=== PATIENT | male | born 1990 | race Two or more races ===

== ENCOUNTER 2024-05-04 08:13 | Emergency (ER) | payer MEDICARE, OTHER, SELFPAY ==
[2024-05-04 08:20] VITALS: BP 138/101
--- NOTE | 2024-05-04 08:48 | ED.GENMED ---
History of Present Illness
General
Chief Complaint: Sleep Disturbances
Time Seen by Provider: 05/04/24 08:48
History of Present Illness
History of Present Illness:
TIME OF INITIAL ENCOUNTER: 8:50 AM
HPI:
The patient is currently a relatively poor historian and does not offer much in the way of history. There is concern for insomnia. I spoke to the father at bedside as well. The patient had a cold over the past week. He has been taking cough
medication but father confirms that not have anything in it that would lead to insomnia. He has not been on any caffeine. Denies drug/alcohol use. He no longer takes divalproex. There was also concerns that he has been having an abnormal
sensation in his head and abnormal sensation that migrate throughout various parts of his body.
EXAM:
GENERAL: Well appearing in no distress
HEENT: Moist oral mucosa
CARDIOVASCULAR: No murmurs, normal heart rate, regular rhythm, No chest wall tenderness
PULMONARY: No respiratory distress, breath sounds are clear and equal
ABDOMEN: Soft with no peritoneal signs, no tenderness
NEUROLOGIC: Excellent strength all extremities, no coordination deficits
PSYCHIATRIC: The patient has a flat affect, no spontaneous speech but does give 1 or 2 word answers when questioned
EXTREMITIES: Nontender, no edema, moves all extremities equally
SKIN: No rash, no lesions
NUMBER AND COMPLEXITY OF PROBLEMS ADDRESSED AT THE ENCOUNTER
� Chronic conditions affecting care: Schizophrenia, OCD
� Acute Exacerbation and/or Progression of Chronic Illness: This is an acute problem
� Differential Diagnosis includes: Insomnia, exacerbation of schizophrenia, electrolyte abnormality, thyroid disease, B12/folate abnormality
AMOUNT AND/OR COMPLEXITY OF DATA TO BE REVIEWED AND ANALYZED
� I performed an independent evaluation of and my interpretation is:
EKG:
CT:
X-rays:
Laboratory Studies: CBC and chemistries unremarkable, TSH unremarkable, B12 and folate unremarkable
Other:
� Review of other/old records: The patient had a head CT 08/16/2021 which was unremarkable; basic labs in 06/2022 are unremarkable; all UDS is in the past been negative
� Clinical information was obtained by an independent historian: I spoke to the father at bedside
� Prescriptions/Medications Considered but not given: Father suggested trying a muscle relaxer however the patient denies any pain
� Further testing considered but not performed:
RISK OF COMPLICATIONS AND/OR MORBIDITY OR MORTALITY OF PATIENT MANAGEMENT
� Social determinants of health affecting care: Lives at home
� Discussion with other providers:
� Escalation of care including admission/observation vs risk of discharge considered: I reviewed his medication list which includes fluvoxamine, lorazepam 0.5 mg twice daily, aripiprazole 7.5 mg nightly,
ANY OTHER UPDATES:
11:05 AM: I reassessed the patient. Medically speaking, no abnormality noted. He is still having trouble explaining what he was feeling earlier, indicating that there was a sensation that something 'is moving around'. Strongly suspect more of a
psychiatric etiology�recommend that he follows up with psych first.
Past History
Past History
ED Past Medical History: Seizures and Other (Febrile seizure as a child)
ED Past Surgical History: None
Social History
Tobacco: Non-smoker
Alcohol: None
Drug: None
Personal: Single
Living: with family
Family History
Family History: Negative Diabetes, Hypertension, Early CAD, Asthma or Cancer
Phy Exam
Physical Exam
Physical Exam:
See HPI
Course
Orders/Labs/Results
Orders:
Orders
05/04/24 09:09
B12 [Vitamin B12] Urgent
Basic Metabolic Panel Urgent
Complete Blood Count/With Diff Urgent
Folate Urgent
TSH Reflex To Free T4 Urgent
Abnormal Lab Results
05/04/24
09:09
Carbon Dioxide 31 H mmol/L
(22-30)
Glucose 110 H mg/dl
(70-99)
Folate > 20.0 H ng/ml
(2.76-20)
05/04/24 09:09
05/04/24 09:09
Vital Signs
Initial and Last Documented VS:
Initial Vital Signs
Temp Pulse Resp BP Pulse Ox
98.8 F 98 16 138/101 98
05/04/24 08:20 05/04/24 08:20 05/04/24 08:20 05/04/24 08:20 05/04/24 08:20
Last Documented Vital Signs
Temp Pulse Resp BP Pulse Ox
98.8 F 82 16 127/83 99
05/04/24 08:20 05/04/24 10:48 05/04/24 10:48 05/04/24 10:48 05/04/24 10:48
*Critical Care Note
Total Time (30-74mins, 75-104mins- exclusive of procedures): Not Applicable
ED Attending Note
-
Portions of this chart may have been created with voice recognition software.� Occasional wrong word or��sound alike� substitutions may have occurred due to the inherent limitations of voice recognition software.
Discharge Plan
Departure
Patient Disposition: Home (Routine Discharge)
Date of Disposition: 05/04/24
Time of Disposition: 11:16
Patient with high blood pressure during this ER visit?: Yes
Discharge Problem:
Insomnia
Prescriptions:
No Action
divalproex 500 MG tablet extended release 24 hr
500 mg PO HS
olanzapine 5 MG tablet
5 mg PO HS
sertraline 50 MG tablet
50 mg PO DAILY
docusate sodium [Colace] 100 mg capsule
100 mg PO BID Qty: 20 0RF
Referrals:
Fareed Marie, DO [Family Provider] -
Activity Restrictions/Additional Instructions:
Consider taking [id number] Unisom (doxylamine) to help with sleep. Basic blood work is unremarkable. Follow up with your psychiatrist.
Interventions
Interventions:
*Risk Screen - Suicide Last Done: 05/04/24 08:20
*General Assessment Last Done: 05/04/24 09:11
*Neglect/Abuse Screening Last Done: 05/04/24 08:20
ED- Fall Risk Assessment Last Done: 05/04/24 09:11
*ED COVID-19 Vaccine History Last Done: 05/04/24 09:11
*Nursing Disposition Last Done: 05/04/24 11:25
ED- Neurological Assessment Last Done: 05/04/24 09:11
ED-Psychological Assessment Last Done: 05/04/24 09:11
ED-Suicide Risk Assessment Last Done: 05/04/24 09:11
Discharge Date and Time
Discharge Date/Time: 05/04/24 11:25
Print Language: [place]
--- NOTE | 2024-05-04 08:52 | EDRN ---
Dr. Coppola in room w/ pt at this time.
[2024-05-04 09:22] LABS: % Basophils 0.5 % (0-2); % Eosinophils 1.8 % (0-6); % Immature Granulocytes 0.3 % (0-0.5); % Lymphocytes 23.3 % (20.5-51.1); % Monocytes 6.3 % (1.7-9.3); % Neutrophils 67.8 % (42.2-75.2); Absolute Eosinophils 0.1 10^3/uL (0-0.7); Absolute Lymphocytes 1.8 10^3/uL (1.2-3.4); Absolute Monocytes 0.5 10^3/uL (0.1-0.6); Absolute Neutrophils 5.3 10^3/uL (1.4-6.5); Hemoglobin 15.5 g/dL (13.0-18.0); Mean Corp Hgb Conc. 34.4 g/dL (33.0-37.0); Mean Corpuscular Hgb 30.4 pg (27.0-31.0); Mean Corpuscular Volume 88.2 fL (80.0-94.0); Mean Platelet Volume 9.3 fL (7.4-10.4); Nucleated Red Blood Cells % 0 % (-); Platelet Count 283 10^3/uL (130-400); Red Cell Dist. Width 12.1 % (11.5-14.5); White Blood Cell Count 7.8 10^3/uL (4.8-10.8)
[2024-05-04 09:33] LABS: Blood Urea Nitrogen 12 mg/dl (9-20); Calcium 9.6 mg/dl (8.4-10.2); Carbon Dioxide 31 mmol/L (22-30); Chloride 102 mmol/L (98-107); Glucose 110 mg/dl (70-99); Potassium 4.6 mmol/L (3.5-5.1); Sodium 144 mmol/L (135-145); eGFR > 60.00
[2024-05-04 09:43] VITALS: BP 122/82; BMI 21.0
[2024-05-04 10:48] VITALS: BP 127/83
[2024-05-04 10:54] LABS: TSH Reflex To Free T4 1.85 uIU/ml (0.47-4.68)
--- NOTE | 2024-05-04 11:04 | EDRN ---
Dr. Coppola in w/ pt and father at this time.
[2024-05-04 14:48] LABS: Folate > 20.0 ng/ml (2.76-20); Vitamin B12 790 pg/ml (239-931)
== END 2024-05-04 11:25 | disposition home or self-care (01) ==
LOC: EMR 08:13
PROVIDERS: EMERGENCY PHYSICIAN Emergency Medicine; FAMILY PHYSICIAN Family Medicine
DX: G47.00 Insomnia, unspecified (principal); R03.0 Elevated blood-pressure reading, without diagnosis of hypertension
CPT/HCPCS: 99283; 80048; 82607; 82746; 84443; 85025

== ENCOUNTER 2024-08-10 18:12 | Emergency (ER) | payer MEDICARE, OTHER, SELFPAY ==
--- NOTE | 2024-08-10 18:15 | ED.GENMED ---
ED Provider Triage
<Elvis Regan PA-C - Last Filed: 08/10/24 18:18>
-
Patient seen by provider in Triage?: Seen in Triage
Attestation: A medical screening examination has been initiated by a qualified medical provider. Based on the assessment performed at this time, it has been determined that an emergent medical condition may exist and the patient has been informed
that further medical evaluation and possible additional diagnostic testing may be needed.
HPI: Patient reports having difficulty with his thoughts over the last hour. History was otherwise quite difficult to obtain. Patient with history of seizure disorder but no reported seizures today, family reports not had seizure in many years at
least 10 years since last. No medication changes recently. No fevers or infectious symptoms.
GENERAL: Alert , in no apparent distress
EYE: No visual abnormalities.
NECK: Trachea midline
ENT: No visible abnormalities.
LUNGS: No acute respiratory distress
NEUROLOGICAL: Alert and oriented
SKIN: Skin intact. No visible changes.
MUSCULOSKELETAL: Moving extremities normally
PSYCH: Normal and appropriate interaction.
This is a medical evaluation conducted in person to initiate diagnostic evaluation and provide initial therapeutics. Please see further documentation by the treating clinician.
History of Present Illness
<Elvis Regan PA-C - Last Filed: 08/10/24 18:18>
General
Chief Complaint: Change in Mental Status
Time Seen by Provider: 08/10/24 23:24
<Henna Ely DO - Last Filed: 08/11/24 02:05>
History of Present Illness
History of Present Illness:
33-year-old male with history of OCD and anxiety presenting to the emergency department for generally feeling unwell. Patient reports today he woke up and did not feel well, notes abnormal sensations running throughout his body. Patient is a very
poor historian regarding his symptoms, is unable to elaborate on what he is feeling. Denies suicidal or homicidal ideations. Denies any hallucinations. Denies any recent fever or illness. Denies chest pain or difficulty breathing. Denies
abdominal pain or vomiting. Claims with his medications. Denies additional acute medical complaints
Past History
<Elvis Regan PA-C - Last Filed: 08/10/24 18:18>
Past History
ED Past Medical History: Seizures and Other (Febrile seizure as a child)
ED Past Surgical History: None
Social History
Tobacco: Non-smoker
Alcohol: None
Drug: None
Personal: Single
Living: with family
Family History
Family History: Negative Diabetes, Hypertension, Early CAD, Asthma or Cancer
Phy Exam
<Henna Ely DO - Last Filed: 08/11/24 02:05>
Physical Exam
Physical Exam:
General: Well-appearing, no clinical signs of dehydration, nontoxic and in no acute distress
HEENT: protecting airway
Neck: appears supple
CV: Normal heart rate, regular rhythm
Resp: No accessory muscle use, no increased work of breathing, lungs clear to auscultation bilaterally
Abd: No distention, no tenderness to
Extremities: No deformities, no swelling, no erythema
Neuro: alert, no focal neurologic deficit
: deferred
Rectal: deferred
Psych: Flat affect
Skin: Intact
Course
<Elvis Regan PA-C - Last Filed: 08/10/24 18:18>
Orders/Labs/Results
Orders:
Orders
08/10/24 18:26
Basic Metabolic Panel Urgent
Complete Blood Count/With Diff Urgent
Depakane Urgent
08/11/24 00:12
CT Head W/o Iv Contrast Urgent
Comment:
Reason For Exam: change in behavior
08/11/24 00:19
COVID-19 Antigen Urgent
Source: Nasal Swab
Influenza A+B Rapid Molecular Urgent
DAVID Source: Nasal Swab
Specimen Description:
Abnormal Lab Results
08/10/24
18:26
Carbon Dioxide 33 H mmol/L
(22-30)
Valproic Acid < 10.0 L ug/ml
(50.0-120.0)
08/10/24 18:26
08/10/24 18:26
Vital Signs
Initial and Last Documented VS:
Initial Vital Signs
Temp Pulse Resp BP Pulse Ox
98.2 F 100 18 141/101 99
08/10/24 18:18 08/10/24 18:18 08/10/24 18:18 08/10/24 18:18 08/10/24 18:18
Last Documented Vital Signs
Temp Pulse Resp BP Pulse Ox
98.2 F 80 18 142/78 98
08/10/24 18:18 08/11/24 01:05 08/11/24 01:05 08/11/24 01:05 08/11/24 01:05
<Henna Ely, DO - Last Filed: 08/11/24 02:05>
Orders/Labs/Results
Orders:
Orders
08/10/24 18:26
Basic Metabolic Panel Urgent
Complete Blood Count/With Diff Urgent
Depakane Urgent
08/11/24 00:12
CT Head W/o Iv Contrast Urgent
Comment:
Reason For Exam: change in behavior
08/11/24 00:19
COVID-19 Antigen Urgent
Source: Nasal Swab
Influenza A+B Rapid Molecular Urgent
DAVID Source: Nasal Swab
Specimen Description:
Abnormal Lab Results
08/10/24
18:26
Carbon Dioxide 33 H mmol/L
(22-30)
Valproic Acid < 10.0 L ug/ml
(50.0-120.0)
08/10/24 18:26
08/10/24 18:26
Vital Signs
Initial and Last Documented VS:
Initial Vital Signs
Temp Pulse Resp BP Pulse Ox
98.2 F 100 18 141/101 99
08/10/24 18:18 08/10/24 18:18 08/10/24 18:18 08/10/24 18:18 08/10/24 18:18
Last Documented Vital Signs
Temp Pulse Resp BP Pulse Ox
98.2 F 80 18 142/78 98
08/10/24 18:18 08/11/24 01:05 08/11/24 01:05 08/11/24 01:05 08/11/24 01:05
<Henna Ely DO - Last Filed: 08/11/24 02:05>
MDM/Problems Addressed
MDM/Problems Addressed:
33-year-old male presenting to the emergency department with abnormal sensations running through his body and for generally feeling unwell. Vital signs are significant for mild hypertension.
On exam, patient is resting comfortably, no acute distress or discomfort. Patient with flat affect. Patient is a very poor historian regarding his symptoms, difficultly elaborating on what he is feeling. On review of EMR, patient was seen in
April with similar symptoms at that time, described abnormal sensation running throughout his body. Ultimately suspect psychiatric component to symptoms. Patient had screening laboratory analysis prior to my assessment, unremarkable CMP and CBC.
Undetectable Depakote level, however patient notes that he has been taking his medication for several years. Will add CT head imaging given strange affect. Will also add COVID and flu.
02:00 - CT head negative. COVID and flu negative. At this time feel stable for discharge, however advising outpatient psychiatric follow-up. At this time does not appear to be a threat to himself or others. Strict return precautions communicated
to patient and father verbalized understanding
<Henna Ely DO - Last Filed: 08/11/24 02:05>
*Critical Care Note
Total Time (30-74mins, 75-104mins- exclusive of procedures): Not Applicable
ED Attending Note
<Elvis Regan PA-C - Last Filed: 08/10/24 18:18>
-
Portions of this chart may have been created with voice recognition software.� Occasional wrong word or��sound alike� substitutions may have occurred due to the inherent limitations of voice recognition software.
Discharge Plan
Departure
Prescriptions:
No Action
divalproex 500 MG tablet extended release 24 hr
500 mg PO HS
olanzapine 5 MG tablet
5 mg PO HS
sertraline 50 MG tablet
50 mg PO DAILY
docusate sodium [Colace] 100 mg capsule
100 mg PO BID Qty: 20 0RF
Referrals:
Stuart Marie DO [Family Provider] -
Interventions
Interventions:
*Risk Screen - Suicide Last Done: 08/10/24 20:41
*General Assessment Last Done: 08/10/24 18:18
*Neglect/Abuse Screening Last Done: 08/10/24 20:41
*ED COVID-19 Vaccine History Last Done: 08/10/24 20:33
ED- Neurological Assessment Last Done: 08/10/24 20:33
ED Swallowing Screen Last Done: 08/10/24 20:33
Discharge Date and Time
Print Language: KHMER
[2024-08-10 18:18] VITALS: BP 141/101
[2024-08-10 18:47] LABS: % Basophils 0.5 % (0-2); % Eosinophils 2.2 % (0-6); % Immature Granulocytes 0.2 % (0-0.5); % Lymphocytes 25.7 % (20.5-51.1); % Monocytes 5.6 % (1.7-9.3); % Neutrophils 65.8 % (42.2-75.2); Absolute Eosinophils 0.2 10^3/uL (0-0.7); Absolute Lymphocytes 2.1 10^3/uL (1.2-3.4); Absolute Monocytes 0.5 10^3/uL (0.1-0.6); Absolute Neutrophils 5.4 10^3/uL (1.4-6.5); Hematocrit 46.2 % (39.0-52.0); Hemoglobin 15.7 g/dL (13.0-18.0); Mean Corpuscular Hgb 30.6 pg (27.0-31.0); Mean Corpuscular Volume 90.1 fL (80.0-94.0); Mean Platelet Volume 9.3 fL (7.4-10.4); Nucleated Red Blood Cells % 0 % (-); Platelet Count 278 10^3/uL (130-400); Red Blood Cell Count 5.13 10^6/uL (4.70-6.10); Red Cell Dist. Width 12.1 % (11.5-14.5); White Blood Cell Count 8.2 10^3/uL (4.8-10.8)
[2024-08-10 18:52] LABS: Blood Urea Nitrogen 11 mg/dl (9-20); Calcium 9.1 mg/dl (8.4-10.2); Carbon Dioxide 33 mmol/L (22-30); Chloride 99 mmol/L (98-107); Glucose 94 mg/dl (70-99); Potassium 4.1 mmol/L (3.5-5.1); Sodium 140 mmol/L (135-145); eGFR > 60.00
[2024-08-10 18:56] LABS: Depakane < 10.0 ug/ml (50.0-120.0)
[2024-08-10 20:40] VITALS: BP 145/86
[2024-08-11 00:48] LABS: COVID-19 Antigen Negative (Negative)
[2024-08-11 01:05] VITALS: BP 142/78
[2024-08-11 02:14] VITALS: BP 144/78
== END 2024-08-11 02:15 | disposition home or self-care (01) ==
LOC: EMR 18:12
PROVIDERS: Physician Assistant Medical; EMERGENCY PHYSICIAN Student in an Organized Health Care Education/Training Program; FAMILY PHYSICIAN Family Medicine
DX: R20.8 Other disturbances of skin sensation (principal); F42.9 Obsessive-compulsive disorder, unspecified; F41.9 Anxiety disorder, unspecified
CPT/HCPCS: 99283; 70450; 80048; 80164; 85025; 87502; 87811